=== PATIENT | male | born 1980 | race Caucasian/White ===

== ENCOUNTER 2021-03-15 18:19 | Emergency (ER) | payer MEDICAID ==
[~2021-03-15 18:19] MED LIST: CYCL-1 PO; HYDR-4383 PO
== END 2021-03-15 23:40 | disposition left against medical advice (07) ==
LOC: ER 18:22
DX: U07.1 COVID-19 (principal); Z53.21 Procedure and treatment not carried out due to patient leaving prior to being seen by health care provider

== ENCOUNTER 2022-08-03 00:16 | Emergency (ER) | payer MEDICAID ==
[~2022-08-03] VITALS: Ht 180.3 cm; Wt 79.5 kg
[2022-08-03] MEDS ORDERED: ketorolac trometh inj. 60 MG/2 ML VIAL IM ONE (06:45)
[2022-08-03] MEDS ORDERED: diazepam 5mg tablet PO ONE (06:45)
[2022-08-03] MEDS ORDERED: HYDR-3965 PO (07:43)
[2022-08-03] MEDS ORDERED: IBUP-1985 PO (07:43)
[2022-08-03 07:53] VITALS: BP 132/78
== END 2022-08-03 07:54 | disposition home or self-care (01) ==
LOC: ER 00:16
DX: M54.41 Lumbago with sciatica, right side (principal); F31.9 Bipolar disorder, unspecified; F12.90 Cannabis use, unspecified, uncomplicated; Z88.8 Allergy status to other drugs, medicaments and biological substances
CPT/HCPCS: 72100; 96372; 99283; J1885